=== PATIENT | male | born 1960 | race Caucasian/White ===

== ENCOUNTER → 2018-04-13 | Outpatient (CLI) | payer BC ==
[~2018-04-13] MED LIST: ASP81TEC PO; ATOR80TA PO; CHOL2000 PO; METO50TA7 PO; OMEG-12 PO
== END ==
LOC: CARD 10:20
PROVIDERS: ATTEND Internal Medicine Cardiovascular Disease
DX: I48.91 Unspecified atrial fibrillation (principal); I25.10 Atherosclerotic heart disease of native coronary artery without angina pectoris; I65.29 Occlusion and stenosis of unspecified carotid artery; R07.9 Chest pain, unspecified; I10 Essential (primary) hypertension; E78.2 Mixed hyperlipidemia
CPT/HCPCS: 93306

== ENCOUNTER → 2018-04-14 | Outpatient (CLI) | payer BC ==
[~2018-04-14] MED LIST changes: +CATHETER FLUSH 10 ML SYR IV PRN
[2018-04-14 09:03] VITALS: BP 180/103
[2018-04-14 09:17] VITALS: BP 217/89
[2018-04-14 09:18] VITALS: BP 232/67
[2018-04-14 09:19] VITALS: BP 213/86
--- NOTE | 2018-04-14 15:59 | STRESS TEST ---
DATE OF SERVICE: 04/14/2018 EXERCISE MYOVIEW STRESS TEST REPORT Baseline heart rate is 61, baseline blood pressure 169/108. Baseline EKG, sinus rhythm with no ischemic changes. In summary, the patient was injected with 10.97 mCi of technetium-99 Myoview and the resting images were obtained and the patient started exercising with a baseline heart rate, blood pressure and EKG mentioned above. The patient was able to exercise for a total of 7 minutes on standard Yunier protocol. At peak stress level, the patient was injected with 29.9 mCi of technetium-99 Myoview. At peak stress level, EKG was showing minimal nondiagnostic changes. Blood pressure was 232/67. During recovery, heart rate and blood pressure returned to baseline. EKG returned to baseline. The resting and stress images were reviewed and compared in the short axis, horizontal long axis, and vertical long axis views. Review of the images showed reversible ischemia, involving the whole anterior wall, anterolateral and inferolateral wall. SSS is 5, SDS 1, and TID value 0.97. On the gated images, the left ventricle appeared to be in normal size with normal contractility. Calculated ejection fraction is 63%. CONCLUSION: 1. Fair exercise tolerance, a total of 7 minutes on standard Yunier protocol, total of 8.5 METs achieving 82% of maximum expected heart rate. 2. Severe hypertensive response to exercise with peak blood pressure 232/67, returned to baseline during recovery. 3. Minimal nondiagnostic EKG changes with exercise returned to baseline during recovery. 4. Diaphragmatic attenuation with reversible ischemia, involving the anterior wall, anterolateral and inferolateral wall. 5. Normal left ventricular size with normal contractility. Calculated ejection fraction is 63%. Job ID: [id number] DocumentID: [id number] Dictated Date: 04/14/2018 15:41:27 Grapple Operator Date: 04/14/2018 15:58:45 Dictated By: JUDE GAMA MD
== END ==
LOC: CARD 06:58
PROVIDERS: ATTEND Internal Medicine Cardiovascular Disease
DX: I48.91 Unspecified atrial fibrillation (principal); I25.10 Atherosclerotic heart disease of native coronary artery without angina pectoris; R07.89 Other chest pain; I10 Essential (primary) hypertension; E78.2 Mixed hyperlipidemia
CPT/HCPCS: 78452; 93017

== ENCOUNTER 2018-04-28 06:38 | Day surgery (SDC) | payer BC ==
[~2018-04-28] VITALS: Ht 185.4 cm; Wt 130.1 kg
[2018-04-28] VITALS (11 sets, daily range): BP systolic 133–193; BP diastolic 72–98
[~2018-04-28 06:38] MED LIST changes: -CATHETER FLUSH 10 ML SYR IV PRN
[2018-04-28] MEDS ORDERED: LIDOCAINE 1% INJ 20 ML 20 ML VIAL ONE (06:50)
[2018-04-28] MEDS ORDERED: HEParin (CATH LAB) 2,000 ML IV ONE (06:50)
[2018-04-28] MEDS ORDERED: NS IV 1000 ML 1,000 ML ONE (06:50)
[2018-04-28] MEDS ORDERED: NS IV 1000 ML 1,000 ML IV SCH ×2 (07:00→08:36)
[2018-04-28 07:24] LABS: BILIRUBIN,URINE NEGATIVE (NEGATIVE); CLARITY,URINE CLEAR; COLOR,URINE YELLOW; GLUCOSE, URINE (UA) NEGATIVE (NEGATIVE); KETONES,URINE NEGATIVE (NEGATIVE); LEUKOCYTE ESTERASE ,URINE NEGATIVE (NEGATIVE); NITRITE,URINE NEGATIVE (NEGATIVE); PH,URINE 5 (5-9); PROTEIN,URINE 1+ (NEGATIVE); UROBILINOGEN,URINE NORMAL (NORMAL)
[2018-04-28] MEDS ORDERED: LOSA100T57 PO (07:24)
[2018-04-28] MEDS ORDERED: AMLO5TAB9 PO (07:24)
[2018-04-28 07:26] LABS: HEMOGLOBIN 15.8 G/DL (13.3-17.7); MEAN PLATELET VOLUME 9.8 FL (7.4-10.4); RED CELL DISTRIBUTION WIDTH 12.2 % (10.0-14.5); WHITE BLOOD COUNT 7.2 10^3/uL (4.3-11.0)
[2018-04-28 07:35] LABS: BACTERIA,URINE NEGATIVE /HPF; SQUAMOUS EPITHELIAL CELL,UR 0-2 /HPF
--- NOTE | 2018-04-28 07:36 | Diagnostic Imaging Report ---
INDICATION: Preop screening. Comparison with 05/26/2012. FINDINGS: Portable chest again shows cardiomegaly. Median sternotomy changes. The lungs are well-aerated and clear. There is no evidence of pulmonary edema. No pneumothorax or pleural effusion. IMPRESSION: Cardiomegaly without acute change. Dictated by: Dictated on workstation # [id number]
[2018-04-28 07:37] LABS: INR 0.9 (0.8-1.4); PROTHROMBIN TIME PATIENT 12.4 SEC (12.2-14.7)
[2018-04-28] MEDS ORDERED: MIDAZOLAM 5 MG/5 ML (VERSED) VIAL ONE (07:38)
[2018-04-28] MEDS ORDERED: fentaNYL INJECTION 100 MCG/2 ML AMP ONE (07:39)
[2018-04-28 07:45] LABS: ALANINE AMINOTRANSFERASE 49 U/L (0-55); ALBUMIN 4.3 GM/DL (3.2-4.5); ALKALINE PHOSPHATASE 94 U/L (40-136); BILIRUBIN,TOTAL 0.6 MG/DL (0.1-1.0); BUN/CREATININE RATIO 12; CALCIUM 9.4 MG/DL (8.5-10.1); CARBON DIOXIDE 24 MMOL/L (21-32); CHLORIDE 105 MMOL/L (98-107); CREATININE SERUM 0.97 MG/DL (0.60-1.30); GFR ESTIMATED > 60; GLUCOSE 148 MG/DL (70-105); SODIUM 139 MMOL/L (135-145); TOTAL PROTEIN 7.3 GM/DL (6.4-8.2)
--- NOTE | 2018-04-28 07:46 | Cardiac Procedure Note-CS/ASA ---
Pre-Procedure Note Pre-Op Procedure Note H&P Reviewed The H&P was reviewed, patient examined and no changes noted. Date H&P Reviewed: Apr 28, 2018 Time H&P Reviewed: 07:45 Conscious Sedation Pre-Proced Time 07:45 ASA Score 3 For ASA 3 and 4: Consider anesthesia and medical clearance. Also, for patients with a history of failed moderate sedation consider anesthesia. Airway Lungs Heart ASA score ASA 1: a normal healthy patient ASA 2: a patient with a mild systemic disease (mid diabetes, controlled hypertension, obesity x ASA 3: a patient with a severe systemic disease that limits activity (angina , COPD, prior Myocardial infarction) ASA 4: a patient with an incapacitating disease that is a constant threat to life (CHF, renal failure) ASA 5: a moribund patient not expected to survive 24 hrs. (ruptured aneurysm) ASA 6: a declared brain- patient whose organs are being harvested. For emergent operations, add the letter E after the classification Mallampati Classification Grade 3 Sedation Plan Analgesia, Amnesia, Plan communicated to team members, Discussed options with patient/fam, Discussed risks with patient/fam The patient is an appropriate candidate to undergo the planned procedure, sedation, and anesthesia. The patient immediately re-assessed prior to indication. JUDE GAMA MD Apr 28, 2018 07:46
--- NOTE | 2018-04-28 08:39 | Discharge Inst-Post CATH ---
Discharge Inst-CATH/EP Post Cardiac Cath/EP D/C Inst Follow Up/Plan Appointment with Dr. Alexander's office in 4 weeks CARDIAC CATH DISCHARGE INSTRUCTIONS *Hold Metformin for 48 hours post heart cath. ACTIVITY * Go Home directly and rest. * Limit activity of the leg (or wrist if it was used) for 7 days including aerobics, swimming, jogging, bicycling, etc. * Restrict stair-climbing for 7 days if possible, if not, climb up with your non -cath leg, then bring together on the same step. * Avoid lifting, pushing, pulling or excessive movement of the affected extremity for 7 days. * Customary sexual activity may be resumed after 2 days-use caution not to use a position that strains or causes pain to the affected extremity. * No driving for 24 hours. * NO SMOKING. * Avoid straining for bowel movements for 7 days. * Gentle walking on level ground is allowed. * Returning to work will depend on the type of procedure and the results. Your doctor will discuss this with you. CALL YOUR DOCTOR FOR ANY OF THE FOLLOWING: *If bleeding from the puncture site occurs- Apply gentle pressure to site with clean cloth and call your doctor or EMS. * If a knot or lump forms under the skin, increases in size, or causes pain. * If bruising appears to be worsening or moving further down your leg instead of disappearing. * Temperature above 101 F. CARE OF YOUR GROIN INCISION; * Bruising or purple discoloration of the skin near the puncture site is common. * You may shower only, no bathtub bathing for 5 days. Be careful to avoid slipping as your leg may feel stiff. * If a closure device was used on your femoral artery, please see the attached guide regarding care of the device and your leg. * Leave the dressing on, until removed by office staff. CARE OF YOUR WRIST INCISION; * Bruising or purple discoloration of the skin near the puncture site is common. * You may shower. * DO NOT submerge wrist. * Leave dressing on, until removed by office staff.. JUDE ALEXANDER MD Apr 28, 2018 08:39
[2018-04-28] MEDS ORDERED: PATIENT MAY USE OWN MEDS, ALL PO SCH (08:45)
--- NOTE | 2018-04-28 08:47 | Cardiac Cath Report ---
Cardiac Cath Report Physician (s)/Armhole Baster Hand (s) Physician JUDE GAMA MD Pre-Procedure Diagnosis Pre-Procedure Diagnosis: coronary artery disease Post-Procedure Note Procedure Start Date: Apr 28, 2018 Name of Procedure: Left heart catheterization Vein graft and JOYCE angiogram Left ventriculogram Aortic arch angiogram Findings/Procedure Note PROCEDURE NOTE: 57 years old gentleman with history of coronary artery disease, CABG, had an abnormal stress test with anteroapical ischemia and anterior wall and inferoapical ischemia. Scheduled for cardiac catheterization possible PTCA After explaining the procedure to the patient, all pros and cons were explained , all questions were answered. The patient signed the consent and then he was placed on the cardiac catheterization laboratory. Groin was prepped SL fashion local anesthesia was used. Sheath placed in the right femoral artery. Bouchra right and left catheter were used to access the coronary system, I had difficulties advancing the J-wire across the aortic arch, it kept selectively going up in the subclavian artery then it went into the right innominate artery , the Bouchra right catheter was used to evaluate the vein graft and the JOYCE. Pigtail was used to access the left ventricular cavity. Left ventriculogram was done Aortic arch angiogram was done At the end of the procedure the sheath was removed. Closure device was used FINDINGS: Hemodynamics LV 149/20, end-diastolic pressure of 20 Aorta 157/79 mean of 103 ANATOMY: Left Main is free of obstructive disease Left Anterior Descending has moderate disease, the JOYCE to the LAD is patent with excellent flow distally Left Circumflex has severe disease, the vein graft to the obtuse marginal branch is patent with good flow distally Right Coronory Artery is subtotally occluded with patent free radial to the right posterolateral branch with excellent flow in the right coronary system, small vessel disease JOYCE angiogram showed patent JOYCE to LAD was small vessel disease distally, good flow Lower graft is the radial graft to the right posterolateral branch with excellent flow in the right coronary system, small vessel disease Upper graft is the vein graft to the second obtuse marginal branch with good flow in the system and retrograde filling to the circumflex LV Gram was done showing left ventricular is normal in size, systolic function is preserved estimated ejection fraction 50 percent Aorta evaluation done with aortic arch angiogram which showed dilated aortic arch, slightly aneurysmal, calcification with tortuous right innominate artery and mild dilatation, mild atherosclerotic disease nonobstructive disease in the left carotid artery, the left subclavian artery appeared tortuous, mildly dilated CONCLUSION: 1. Patent JOYCE to LAD, vein graft to second obtuse marginal branch and radial to the right posterior lateral branch with small vessel disease nonobstructive disease 2. Normal left ventricular size with preserved systolic function estimated ejection fraction 50 percent 3. Prominent aortic arch and great vessels of the neck, hypertensive changes DISCUSSION AND RECOMMENDATION: Continue to maximize medical therapy to achieve adequate blood pressure and lipid control Anesthesia Type: Conscious Sedation Estimated blood loss (mL): 15 ml Contrast Amount: 95 ml Total Radiation Dose: 1083 mGy Post-Procedure Diagnosis Post-operative diagnosis: Coronary artery disease Hypertensive heart disease Hypertension Hyperlipidemia JUDE GAMA MD Apr 28, 2018 08:47
== END 2018-04-28 13:05 | disposition home or self-care (01) ==
LOC: CATH 06:38
PROVIDERS: ATTEND Internal Medicine Cardiovascular Disease
DX: I25.10 Atherosclerotic heart disease of native coronary artery without angina pectoris (principal); Z95.1 Presence of aortocoronary bypass graft; I11.0 Hypertensive heart disease with heart failure; I50.9 Heart failure, unspecified; E78.2 Mixed hyperlipidemia; I65.23 Occlusion and stenosis of bilateral carotid arteries; Z79.899 Other long term (current) drug therapy; Z11.2 Encounter for screening for other bacterial diseases; Z87.891 Personal history of nicotine dependence; E66.9 Obesity, unspecified; Z68.37 Body mass index [BMI] 37.0-37.9, adult
CPT/HCPCS: 36221; 36415; 71045; 80053; 81000; 85027; 85610; 85730; 87081; 93459

== ENCOUNTER → 2020-09-14 | Outpatient (CLI) | payer BC ==
[~2020-09-14] MED LIST changes: +AMLO-250 PO; +LOSA100T57 PO
== END ==
PROVIDERS: ATTEND Internal Medicine Cardiovascular Disease
DX: I11.9 Hypertensive heart disease without heart failure (principal); I34.0 Nonrheumatic mitral (valve) insufficiency
CPT/HCPCS: 93306

== ENCOUNTER → 2022-05-05 | Outpatient (CLI) | payer BC ==
[2022-05-05 11:05] VITALS: BP 147/89
== END ==
LOC: CARD 09:24
PROVIDERS: ATTEND Internal Medicine Cardiovascular Disease
DX: I10 Essential (primary) hypertension (principal)
CPT/HCPCS: C8929; C8930; 93306